=== PATIENT | male | born 1995 | race Asian ===

== ENCOUNTER 2021-02-03 01:49 | Emergency (ER) | payer SELFPAY ==
[~2021-02-03] VITALS: Ht 177.8 cm; Wt 95.0 kg
[2021-02-03] MEDS ORDERED: MAGNESIUM/ALUMINUM HYDROXIDE/SIMETHICONE 30ML UDC PO STA (02:41)
[2021-02-03] MEDS ORDERED: FAMOTIDINE 20MG/2ML VIAL IV STA (02:41)
[2021-02-03] MEDS ORDERED: SODIUM CHLORIDE 0.9% 1,000 ML IV ONE (02:45)
[2021-02-03 03:07] LABS: BASOPHILS % 0.7 % (0.0-2.0); EOSINOPHILS % 1.1 % (0.0-5.0); HEMATOCRIT. 48.3 % (42.0-52.0); HEMOGLOBIN. 15.7 g/dL (14.0-18.0); LYMPHOCYTES % 14.8 % (20.0-50.0); MEAN CORPUSCULAR HEMOGLOBIN 28.2 pg (28.0-32.0); MEAN CORPUSCULAR VOLUME 86.6 fL (80.0-94.0); MEAN PLATELET VOLUME 9.6 fl (7.4-10.4); MONOCYTES % 6.1 % (2.0-8.0); NEUTROPHILS % 77.3 % (40.0-76.0); PLATELET 187 x1000/uL (130-400); RED BLOOD CELL COUNT 5.58 mill/uL (4.7-6.1); RED CELL DISTRIBUTION WIDTH 13.3 % (11.6-14.6)
[2021-02-03 03:14] LABS: CHLORIDE 109 mEq/L (98-107)
[2021-02-03] MEDS ORDERED: ONDANSETRON HCL 4MG/2ML INJ IV ONE (03:15)
[2021-02-03] MEDS ORDERED: FAMO-135 MT (03:57)
[2021-02-03 04:25] VITALS: BP 124/88
== END 2021-02-03 04:32 | disposition home or self-care (01) ==
LOC: EDBD 01:49 → ER 02:54
DX: K29.00 Acute gastritis without bleeding (principal); R94.5 Abnormal results of liver function studies
CPT/HCPCS: 36415; 80053; 83690; 85025; 99283; J7030